=== PATIENT | female | born 1970 | race Two or more races ===

== ENCOUNTER 2025-04-20 08:04 | Emergency (ER) | payer BC, OTHER ==
[~2025-04-20] VITALS: Ht 162.6 cm; Wt 104.0 kg
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
[2025-04-20] MEDS: ACETAMINOPHEN 325 MG TAB PO ONE (09:24)
[2025-04-20 11:05] VITALS: BP 144/61; PULSE 60; RESP 16; TEMP 98.1; O2SAT 98
== END 2025-04-20 11:09 | disposition home or self-care (01) ==
LOC: ER 08:04 → EDBD 08:04 → ER 11:09
DX: M54.50 Low back pain, unspecified (principal); R07.89 Other chest pain; M25.512 Pain in left shoulder; V49.49XA Driver injured in collision with other motor vehicles in traffic accident, initial encounter; Y93.89 Activity, other specified; Y92.411 Interstate highway as the place of occurrence of the external cause; Y99.8 Other external cause status
CPT/HCPCS: 71046; 72100